=== PATIENT | male | born 1965 | race Caucasian/White ===

== ENCOUNTER → 2017-04-04 | Emergency (ER) | payer OTHER ==
[~2017-04-04] VITALS: Ht 172.7 cm; Wt 81.6 kg
[~2017-04-04] MED LIST: HYZAAR 100/25 T1 TAB; KETO10TA2 PO; NORFLEX100MG PO; PLAVIX75 MG; VASOTEC5 MG PO; ZOCOR40 MG
== END | disposition home or self-care (01) ==
LOC: ER 03:18
DX: M54.89 Other dorsalgia (principal)

== ENCOUNTER 2020-05-29 06:43 | Outpatient (CLI) | payer OTHER | END 2020-05-29 06:51 | disposition home or self-care (01) | LOC: LAB 06:43 | PROVIDERS: ATTEND Radiology Diagnostic Radiology | DX: N20.0 Calculus of kidney (principal) ==

== ENCOUNTER → 2020-06-03 | Outpatient (CLI) | payer OTHER | END | disposition home or self-care (01) | LOC: TOM 10:08 | DX: E11.65 Type 2 diabetes mellitus with hyperglycemia (principal); D75.1 Secondary polycythemia; R19.5 Other fecal abnormalities; R94.5 Abnormal results of liver function studies; E78.1 Pure hyperglyceridemia; R10.9 Unspecified abdominal pain ==

== ENCOUNTER → 2023-04-20 | Outpatient (CLI) | payer OTHER | END | disposition home or self-care (01) | LOC: MRI 11:04 | PROVIDERS: ATTEND General Practice | DX: M25.562 Pain in left knee (principal); G89.21 Chronic pain due to trauma | CPT/HCPCS: 73718 ==

== ENCOUNTER 2024-12-25 12:52 | Outpatient (CLI) | payer OTHER | END 2024-12-25 12:57 | disposition home or self-care (01) | LOC: MRI 12:52 | PROVIDERS: ATTEND General Practice | DX: M25.512 Pain in left shoulder (principal); G89.11 Acute pain due to trauma | CPT/HCPCS: 73221 ==

== ENCOUNTER 2024-12-25 14:23 | Outpatient (CLI) | payer OTHER ==
[2024-12-25 15:12] LABS: CREATININE SERUM 0.72 mg/dL (0.70-1.30)
== END 2024-12-25 14:32 | disposition home or self-care (01) ==
LOC: LAB 14:23
PROVIDERS: ATTEND Radiology Diagnostic Radiology
DX: R44.2 Other hallucinations (principal)

== ENCOUNTER 2024-12-26 07:20 | Outpatient (CLI) | payer OTHER | END 2024-12-26 07:24 | disposition home or self-care (01) | LOC: MRI 07:20 | PROVIDERS: ATTEND General Practice | DX: R44.2 Other hallucinations (principal); R41.3 Other amnesia; E11.8 Type 2 diabetes mellitus with unspecified complications; I10 Essential (primary) hypertension; Z71.41 Alcohol abuse counseling and surveillance of alcoholic; G89.11 Acute pain due to trauma; R06.83 Snoring | CPT/HCPCS: 70553 ==